=== PATIENT | male | born 1980 | race Caucasian/White ===

== ENCOUNTER 2019-12-25 09:40 | Emergency (ER) | payer MEDICAID ==
[~2019-12-25] VITALS: Ht 165.1 cm; Wt 81.6 kg
[2019-12-25 09:52] VITALS: BP 157/107
--- NOTE | 2019-12-25 09:55 | NUR ---
PT AMBULATED TO BED 7, STEADY GAIT
--- NOTE | 2019-12-25 10:00 | NUR ---
Dr. Herndon is evaluating the patient at bedside.
--- NOTE | 2019-12-25 10:03 | NUR ---
39 Y/ PRESENTS FOR L KNEE LACERATION C ELECTRIC SAW X 20 MINS AGO. UNABLE TO RECALL LAST TDAP VACCINE. PT REPORTS 12/24 PAIN ALLERGIES- IBUPROFEN RX- DENIES PMH- DENIES
[2019-12-25] MEDS ORDERED: BACITRACIN OINT 500 UNITS/GM PKT TP ONE (10:38)
--- NOTE | 2019-12-25 10:41 | NUR ---
PT STATED THAT HE HAD THE TDAP VACC ABOUT 4 YRS AGO WHEN HE CUT HIS FINGER. NO NEED TO GIVE PER ERMD.
[2019-12-25 10:43] VITALS: BP 157/107
[2019-12-25] MEDS: LIDOCAINE MPF 1% 10 MG/ML VIAL INJ ONE ×2 (10:44)
--- NOTE | 2019-12-25 10:44 | NUR ---
Patient discharged with v/s stable. Written and verbal after care instructions given and explained. Patient verbalized understanding. Ambulatory with steady gait. All questions addressed prior to discharge. Advised to follow up with PMD.
== END 2019-12-25 10:44 | disposition home or self-care (01) ==
LOC: MED 09:40
DX: S71.112A Laceration without foreign body, left thigh, initial encounter (principal); R03.0 Elevated blood-pressure reading, without diagnosis of hypertension; Z88.8 Allergy status to other drugs, medicaments and biological substances; W29.3XXA Contact with powered garden and outdoor hand tools and machinery, initial encounter; Y93.89 Activity, other specified; Y92.098 Other place in other non-institutional residence as the place of occurrence of the external cause; Y99.8 Other external cause status
CPT/HCPCS: 12002; 90715; 99282; J2001